=== PATIENT | female | born 1970 | race Caucasian/White ===

== ENCOUNTER → 2016-10-28 | Outpatient (CLI) | payer OTHER ==
--- NOTE | 2016-10-28 20:07 | Diagnostic Imaging Report ---
EXAMINATION: Left breast digital diagnostic mammogram with CAD. The current study was also evaluated with a Computer Aided Detection (CAD) system. INDICATION: Six months followup of asymmetry in the upper aspect of the left MLO view. FINDINGS: The background breast parenchyma is heterogeneously dense which may decrease mammographic sensitivity. Previously seen asymmetry in the upper aspect of the left MLO view. This is prominent compared to the prior exam. Prior ultrasound evaluation demonstrated multiple simple cysts with no suspicious lesion. There is suggestion of remaining cysts, better seen on the CC projection. IMPRESSION: Less prominent asymmetry is seen compared to the prior study with background dense parenchyma and cystic changes noted. The previously seen asymmetry is likely summation artifact related to the fibrocystic change. Annual screening mammogram is recommended with the next bilateral exam due in January 2017. ACR BI-RADS Category 2: Benign findings. Result letter will be mailed to the patient. Note: At least 10% of breast cancer is not imaged by mammography. Dictated by: Dictated on workstation # [id number]
== END ==
LOC: RAD 08:54
PROVIDERS: ATTEND Nurse Practitioner Family
DX: R92.8 Other abnormal and inconclusive findings on diagnostic imaging of breast (principal)

== ENCOUNTER → 2018-11-27 | Outpatient (CLI) | payer OTHER ==
--- NOTE | 2018-11-27 13:10 | Diagnostic Imaging Report ---
INDICATION: Routine screening. COMPARISON: Comparison is made with prior mammogram from 01/19/2016 and left mammogram from 10/28/2016. TECHNIQUE: 2-D and 3-D bilateral screening mammography was performed. The current study was also evaluated with a Computer Aided Detection (CAD) system. 3-D tomosynthesis was also performed and reviewed. FINDINGS: Both breasts remain heterogeneously dense, limiting the sensitivity of mammography. Rounded masses in both breasts, previously shown to represent cysts, are again noted but appear slightly less prominent on today's exam. No spiculated mass or malignant-appearing microcalcifications are seen. Axillae are unremarkable. IMPRESSION: No mammographic features suspicious for malignancy are identified. ACR BI-RADS Category 2: Benign findings. Result letter will be mailed to the patient. Note: At least 10% of breast cancer is not imaged by mammography. Dictated by: Dictated on workstation # [id number]
== END ==
LOC: RAD 10:28
PROVIDERS: ATTEND Nurse Practitioner Family
DX: Z12.31 Encounter for screening mammogram for malignant neoplasm of breast (principal)
CPT/HCPCS: 77067

== ENCOUNTER → 2021-07-28 | Outpatient (CLI) | payer OTHER ==
[~2021-07-28] VITALS: Ht 152 cm; Wt 79.0 kg
[~2021-07-28] MED LIST: LIDOCAINE 1% INJ 20 ML VIAL INJ ONE
--- NOTE | 2021-07-28 11:38 | Diagnostic Imaging Report ---
INDICATION: Status post left breast ultrasound-guided biopsy. TECHNIQUE: Unilateral left 2D CC and ML mammography was performed after the patient underwent ultrasound guided core biopsy. FINDINGS: The left breast is heterogeneously dense. There is a marker clip in the upper outer left breast. No suspicious calcifications are seen. IMPRESSION: Marker clip in the upper outer left breast, status post ultrasound-guided biopsy. Dictated by: Dictated on workstation # [id number]
--- NOTE | 2021-07-28 12:30 | Diagnostic Imaging Report ---
INDICATION: Left breast nodule. Patient presents for ultrasound guided biopsy. The patient brought to the sonographically placed on table in supine position. Ultrasound imaging of the left breast was performed to evaluate appropriate entry site. The left breast was then prepped and draped in usual sterile fashion. Small amount of 1% lidocaine was utilized for local anesthesia. Multiple core biopsies of the 6 mm nodule at the 1:00 location left breast 3 cm from the nipple was obtained with a hand-held, 13-gauge vacuum-assisted mammotome device. A single pass was made with the 14-gauge Achieve needle and core biopsy was performed. A marker clip was then deployed. Hemostasis was obtained using manual compression. Patient tolerated procedure well and was sent for post procedure mammogram in satisfactory condition. IMPRESSION: Successful ultrasound guided core biopsy of the nodule 1:00 location left breast, 3 cm from the nipple, as described. Pathology results are currently pending. Dictated by: Dictated on workstation # [id number]
== END ==
LOC: RAD 09:58
PROVIDERS: ATTEND Nurse Practitioner Family
DX: N63.21 Unspecified lump in the left breast, upper outer quadrant (principal)
CPT/HCPCS: 19083; 77065; G0279